=== PATIENT | male | born 1965 | race Caucasian/White ===

== ENCOUNTER 2025-06-04 14:35 | Emergency (ER) | payer MEDICARE, MEDICAID, SELFPAY ==
[2025-06-04 14:36] VITALS: BMI 50.1
--- NOTE | 2025-06-04 14:39 | EKG_ITS ---
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
[2025-06-04 14:40] VITALS: BP 138/99; PULSE 99; RESP 20; TEMP 37.1; O2SAT 95
--- NOTE | 2025-06-04 14:59 | XR_ITS ---
Examination: PA lateral chest 2 views Technique: Upright PA lateral chest 2 views Date and time: June 04, 2025, 1520 hrs. Comparison April 23, 2020 Indications: Chest pain today. Findings: Mild prominence left ventricle. No pneumonia or pulmonary edema. The osseous structures are intact. Impression: No active disease.
--- NOTE | 2025-06-04 14:59 | PD.EDRME ---
Rapid Medical Screening Exam RME Arrival date/time: 06/04/25 14:35 59-year-old male with no known medical history presents to the emergency room with a chief complaint of 8 out of 10 left-sided sternal chest pain that radiates to his left arm x 1 day I have greeted and performed a focused initial assessment of this patient. A comprehensive ED assessment and evaluation of the patient, analysis of all test results, and completion of the medical decision making process will be conducted by additional ED providers. Chief Complaint: Chest Pain Vital signs: Vital Signs Temperature 98.8 F 06/04/25 14:40 Pulse Rate 99 06/04/25 14:40 Respiratory Rate 20 06/04/25 14:40 Blood Pressure 138/99 H 06/04/25 14:40 Pulse Oximetry (%) 95 06/04/25 14:40 Oxygen Delivery Method Room Air 06/04/25 14:40 Vital signs reviewed by provider: Yes
--- NOTE | 2025-06-04 15:08 | PD.EDCHEST ---
ED Chest Pain RME/HPI General Chief Complaint: Chest Pain Stated Complaint: CHEST PAIN, L) ARM PAIN SINCE 6:30AM Time Seen by Provider: 06/04/25 15:01 Arrival date/time: 06/04/25 14:35 Limitations: no limitations RME / HPI RME / HPI narrative: 06/04/25 14:35 59-year-old male with no known medical history presents to the emergency room with a chief complaint of 8 out of 10 left-sided sternal chest pain that radiates to his left arm x 1 day. He states he took 2 adult aspirins today at noon. Has no history of ACS or pulmonary emboli. No lower leg edema. No recent surgeries. No recent traveling. He states he does not take any medications on a daily basis. He has no other acute complaints or concerns. Related Data Home Medications ?Medication ?Instructions ?Recorded ?Confirmed hydroxyzine HCl 50 mg tablet 50 mg PO TID PRN Anxiety 05/14/21 06/20/21 oxycodone 5 mg tablet 5 mg PO Q6H PRN Pain 05/14/21 06/20/21 Held on 06/20/21. Instructions: Resume on 06/21/21. May resume Oxycodone tomorrow, Thursday 8-6 Allergies Allergy/AdvReac Type Severity Reaction Status Date / Time acetaminophen Allergy Mild HEADACHE Verified 06/04/25 14:37 hydrocodone Allergy Mild HEADACHE Verified 06/04/25 14:37 hydrocodone bit Allergy Mild HEADACHE Verified 06/04/25 14:37 tramadol Allergy Mild HEADACHE Verified 06/04/25 14:37 latex Allergy Unknown Rash Verified 06/04/25 14:37 Review of Systems Review of Systems Systems Reviewed: All systems reviewed, normal except as documented ED Exam General Limitations: Present no limitations General appearance: Present alert and in no apparent distress Head Head exam: Present atraumatic Eye Eye exam: Present normal appearance, PERRL and EOMI ENT ENT exam: Present normal exam, normal oropharynx and mucous membranes moist Neck Neck exam: Present normal inspection, full ROM and trachea midline Chest Chest inspection: Present normal inspection and symmetric chest wall rise Respiratory Respiratory exam: Present normal lung sounds bilaterally Cardiovascular Cardiovascular exam: Present regular rate, normal rhythm and normal heart sounds Abdominal Exam Abdominal exam: Present soft and normal bowel sounds Extremities Exam Extremities exam: Present normal inspection and full ROM Back Exam Back exam: Present normal inspection and full ROM Neurological Exam Neurological exam: Present alert and oriented X3 Psychiatric Psychiatric exam: Present normal affect and normal mood Skin Skin exam: Present warm, dry, intact and normal color Course Quality Measures none Orders Category Date Time Status EKG (ED ONLY) *Do not use* NOW Care 06/04/25 14:39 Completed EKG (ED Only) Stat Exams 06/04/25 14:39 Draft XR chest 2V Stat Exams 06/04/25 14:59 Completed B-Type Natriuretic Peptide Stat Lab 06/04/25 15:09 Completed CBC Stat Lab 06/04/25 15:09 Completed Comprehensive Metabolic Panel Stat Lab 06/04/25 15:09 Completed Drug Screen,Urine Stat Lab 06/04/25 16:30 Received Magnesium Stat Lab 06/04/25 15:09 Completed Partial Thromboplastin Time Stat Lab 06/04/25 15:09 Completed Prothrombin Time with INR Stat Lab 06/04/25 15:09 Completed Troponin I Stat Lab 06/04/25 15:09 Completed Urinalysis Stat Lab 06/04/25 16:30 Received Magnesium Oxide [Mag-Ox 400] Med 06/04/25 16:02 Discontinued 400 mg PO X1 ONE Vital Signs Vital signs: Vital Signs Temperature 98.8 F 06/04/25 14:40 Pulse Rate 99 06/04/25 14:40 Respiratory Rate 20 06/04/25 14:40 Blood Pressure 138/99 H 06/04/25 14:40 Pulse Oximetry (%) 95 06/04/25 14:40 Oxygen Delivery Method Room Air 06/04/25 14:40 Chest Pain MDM Narrative MDM Narrative:: 06/04/25 14:35 59-year-old male with no known medical history presents to the emergency room with a chief complaint of 8 out of 10 left-sided sternal chest pain that radiates to his left arm x 1 day. He states he took 2 adult aspirins today at noon. Has no history of ACS or pulmonary emboli. No lower leg edema. No recent surgeries. No recent traveling. He states he does not take any medications on a daily basis. He has no other acute complaints or concerns. On exam, patient is nontoxic-appearing and in no visible signs of distress. He has no lower leg edema. Lung tones are clear bilaterally. No murmurs appreciated. His work appears essentially unremarkable. We discussed his test results. He is advised to use Tylenol and ibuprofen for comfort. He will follow-up in clinic as soon as possible. Return here at anytime for any worsening or emergent changes. Patient data External records reviewed:: None Clinical information provided by:: patient Social determinants that could affect healthcare access:: none Patient has the following chronic illnesses:: n/a How is presenting disease/condition affected by chronic disease/condition?: no chronic disease Evaluation data The following diagnostics were reviewed and interpreted by me:: lab results (CBC, CMP, troponin, are unremarkable. Magnesium was mildly low at 1.3), radiology exam(s) (Clear and expanded lungs without mass or infiltrate.) and EKG tracing(s) (Sinus rhythm with no ST changes or dynamic T waves) Lab and/or radiology exams considered but not ordered:: n/a Interpretation Summary: Unremarkable workup Medications / Prescriptions Medications or Prescriptions considered but not ordered:: n/a Medication administrations:: Medication Administration History Discontinued Medications Magnesium Oxide (Magnesium Oxide 400 Mg Tablet) 400 mg PO X1 ONE Stop: 06/04/25 16:03 Last Admin: 06/04/25 16:19 Dose: 400 mg Documented By: KODY See above Consultations Consultation(s) initiated? (list below): No Diagnosis Chest Pain Differential Diagnosis: atypical chest pain, costochondritis and chest pain Most likely diagnosis given after review of the tests above:: Mild hypomagnesia, noncardiac chest pain Admission Indicated Admission indicated?: not indicated Admission Request Was there a request for admission?: No Disposition Plan Disposition Plan: Discharge Discharge Attestation Discharge Attestation: The patient and all family members were given an opportunity to ask questions and understood the discharge instructions. Discharge instructions specifically effects, indications for sooner follow up or return to the emergency department, and the expected course of current diagnosis. Patient condition: Stable Discharge Plan Plan Patient Disposition: HOME (Self Care) Patient condition on transfer: Stable Prescriptions/Referrals Prescriptions/Med Rec: No Action hydroxyzine HCl 50 mg Tablet 50 mg PO TID PRN (Reason: Anxiety) oxycodone 5 mg Tablet 5 mg PO Q6H PRN (Reason: Pain) Referrals: Maite Molina MD [Primary Care Provider] - In 1 week Problem List Clinical Impression: Chest pain Patient/Caregiver Discharge Instructions Education Materials: ED Chest Pain, Noncardiac Additional Instructions: - Your blood work including cardiac enzymes was unremarkable. Your EKG was unremarkable in addition to your chest x-ray. -Please use Tylenol and ibuprofen as needed for comfort. -Contact your primary clinic tomorrow to schedule close follow-up appointment. -Please return to the emergency room at anytime for any worsening changes to consider further evaluation or workup. Print Language: Ukrainian Stand Alone Forms: [employer] Award Info., Patient Portal Info Letter
[2025-06-04 15:21] LABS: Basophils # (Auto) 0.1 Thou/mm3 (0.0-0.2); Basophils % (Auto) 1 % (0-2.5); Eosinophils # (Auto) 0.1 Thou/mm3 (0.0-0.5); Eosinophils % (Auto) 1 % (0-10); Hematocrit 41.3 % (41.0-53.0); Hemoglobin 14.0 g/dL (13.5-16.0); Immature Granulocytes Auto 0.11 Thou/mm3 (0.00-0.00); Lymphocytes # (Auto) 2.9 Thou/mm3 (1.0-4.8); Lymphocytes % (Auto) 28 % (10-50); Mean Corpuscular HGB Conc 33.9 g/dl (31.0-37.0); Mean Corpuscular Hemoglobin 28.6 pg (25.0-35.0); Mean Corpuscular Volume 85 fL (80-100); Monocytes # (Auto) 0.9 Thou/mm3 (0.0-0.8); Monocytes % (Auto) 9 % (0-12); Neutrophils # (Auto) 6.3 Thou/mm3 (1.8-7.7); Neutrophils % (Auto) 60 % (37-80); Nucleated Red Blood Cell # 0.00 Thou/mm3 (0.00-0.00); Nucleated Red Blood Cell % 0 /100 WBC (0); Platelet Count 413 Thou/mm3 (140-440); RDW Standard Deviation 38.8 fL (35.1-43.9); Red Blood Count 4.89 Miln/mm3 (4.50-5.90); White Blood Count 10.4 Thou/mm3 (3.8-10.6)
[2025-06-04 15:36] LABS: INR 1.0 (0.9-1.3); Partial Thromboplastin Time 24.3 Seconds (22.0-36.0); Prothrombin Time 10.5 Seconds (9.0-12.2)
[2025-06-04 15:48] LABS: B-Type Natriuretic Peptide < 20 pg/mL (0-100)
[2025-06-04 15:49] LABS: Alanine Aminotransferase 41 U/L (10-49); Albumin, Serum 4.7 gm/dL (3.5-5.0); Albumin/Globulin Ratio 1.7 (1.2-2.2); Alkaline Phosphatase 59 U/L (46-116); Anion Gap 9 (7-16); Aspartate Amino Transferase 42 U/L (0-34); BUN/Creatinine Ratio 5 Ratio (12-20); Bilirubin,Total 0.5 mg/dL (0.3-1.2); Blood Urea Nitrogen 6 mg/dL (9-23); Calcium 9.1 mg/dL (8.3-10.6); Calcium (Corrected) 9.1 mg/dL (8.5-10.1); Carbon Dioxide 26.0 mMol/L (20.0-31.0); Chloride 105 mMol/L (98-107); Creatinine (Component) 1.1 mg/dL (0.6-1.3); Estimated Creatinine Clearance 105.8 mL/min (>60); Globulin 2.7 gm/dL (2.3-3.5); Glucose 144 mg/dL (74-106); Magnesium 1.5 mg/dL (1.6-2.6); Osmolality,Calculated 280 (275-295); Potassium 4.3 mMol/L (3.4-5.1); Sodium 140 mMol/L (136-145); Total Protein 7.4 gm/dL (5.7-8.2); Troponin I < 0.020 ng/mL (0.0-0.045); eGFR > 60 See Note
[2025-06-04] MEDS: MAGNESIUM OXIDE 400 MG TABLET PO (16:19)
[2025-06-04 16:56] LABS: Collection Type, Urine Clean Catch; Squamous Epithelial Cell,Urine 0 /hpf (0-5)
[2025-06-04 17:04] LABS: Bilirubin,Urine Negative (Negative); Blood,Urine Negative (Negative); Clarity,Urine Clear (Clear/Hazy); Color,Urine Lt-Yellow (Lt Yel-Yel); Glucose, Urine Negative (Negative); Hyaline Casts,Urine < 1 /hpf (0-1); Ketones,Urine Negative (Negative); Leukocyte Esterase,Urine Negative (Negative); Nitrite,Urine Negative (Negative); PH,Urine 5.5 (5.0-7.0); Protein,Urine Negative (Neg - Trace); RBC,Urine 1 /hpf (0-3); Specific Gravity,Urine 1.012 (1.001-1.035); Urobilinogen,Urine Negative mg/dL (0.0-1.0); WBC,Urine 1 /hpf (0-5)
[2025-06-04 17:14] LABS: Amphetamine/Methamp Scrn,U Negative (Negative); Barbiturate Screen,Urine Negative (Negative); Benzodiazepines Screen,Urine Negative (Negative); Benzoylecgonine Screen, Ur Negative (Negative); Fentanyl Screen,Urine Negative (Negative); Opiate Screen,Urine Negative (Negative); THC Screen,Urine Positive (Negative)
== END 2025-06-04 17:04 | disposition home or self-care (01) ==
PROVIDERS: Nurse Practitioner Family; Emergency Provider Physician Assistant Medical; PCP Family Medicine
DX: R07.2 Precordial pain (principal); R94.31 Abnormal electrocardiogram [ECG] [EKG]
CPT/HCPCS: 36415; 71046; 80053; 80307; 81001; 83735; 83880; 84484; 85025; 85610; 85730; 93005; 99283; A9270

== ENCOUNTER 2025-06-12 15:33 | Emergency (ER) | payer MEDICARE, MEDICAID, SELFPAY ==
[2025-06-12 15:34] VITALS: BMI 50.1
--- NOTE | 2025-06-12 15:36 | EKG_ITS ---
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
[2025-06-12 15:53] VITALS: BP 138/100; PULSE 95; RESP 18; TEMP 36.7; O2SAT 95
--- NOTE | 2025-06-12 16:00 | XR_ITS ---
Examination: PA lateral chest 2 views TECHNIQUE: Upright PA lateral chest 2 views Date and time: June 04, 2025 1608 hours Comparison June 04, 2025 INDICATIONS: Chest pain one week. FINDINGS: Normal heart size No pneumonia or pulmonary edema Stable small granuloma right upper lobe compared with 2013 chest x-ray IMPRESSION: No pneumonia or pulmonary edema
--- NOTE | 2025-06-12 16:01 | PD.EDRME ---
Rapid Medical Screening Exam E Arrival date/time: 06/12/25 15:33 59-year-old male presents to the emergency room with a chief complaint of palpitations, blurry vision, chest tightness x 1 week that has progressively gotten worse today. I have greeted and performed a focused initial assessment of this patient. A comprehensive ED assessment and evaluation of the patient, analysis of all test results, and completion of the medical decision making process will be conducted by additional ED providers. Chief Complaint: Headache Time Seen by Provider: 06/12/25 15:49 Vital signs: Vital Signs Temperature 98.1 F 06/12/25 15:53 Pulse Rate 95 06/12/25 15:53 Respiratory Rate 18 06/12/25 15:53 Blood Pressure 138/100 H 06/12/25 15:53 Pulse Oximetry (%) 95 06/12/25 15:53 Oxygen Delivery Method Room Air 06/12/25 15:53 Vital signs reviewed by provider: Yes
[2025-06-12 16:28] LABS: Basophils # (Auto) 0.1 Thou/mm3 (0.0-0.2); Basophils % (Auto) 1 % (0-2.5); Eosinophils # (Auto) 0.2 Thou/mm3 (0.0-0.5); Eosinophils % (Auto) 2 % (0-10); Hematocrit 42.0 % (41.0-53.0); Hemoglobin 14.0 g/dL (13.5-16.0); Immature Granulocytes Auto 0.05 Thou/mm3 (0.00-0.00); Lymphocytes # (Auto) 2.5 Thou/mm3 (1.0-4.8); Lymphocytes % (Auto) 27 % (10-50); Mean Corpuscular HGB Conc 33.3 g/dl (31.0-37.0); Mean Corpuscular Hemoglobin 28.8 pg (25.0-35.0); Mean Corpuscular Volume 86 fL (80-100); Monocytes # (Auto) 0.7 Thou/mm3 (0.0-0.8); Monocytes % (Auto) 8 % (0-12); Neutrophils # (Auto) 5.5 Thou/mm3 (1.8-7.7); Neutrophils % (Auto) 62 % (37-80); Nucleated Red Blood Cell # 0.00 Thou/mm3 (0.00-0.00); Nucleated Red Blood Cell % 0 /100 WBC (0); Platelet Count 363 Thou/mm3 (140-440); RDW Standard Deviation 40.3 fL (35.1-43.9); Red Blood Count 4.86 Miln/mm3 (4.50-5.90); White Blood Count 9.0 Thou/mm3 (3.8-10.6)
[2025-06-12 16:39] LABS: B-Type Natriuretic Peptide < 20 pg/mL (0-100)
[2025-06-12 16:42] LABS: Alanine Aminotransferase 52 U/L (10-49); Albumin, Serum 4.7 gm/dL (3.5-5.0); Albumin/Globulin Ratio 1.9 (1.2-2.2); Alkaline Phosphatase 55 U/L (46-116); Anion Gap 9 (7-16); Aspartate Amino Transferase 51 U/L (0-34); BUN/Creatinine Ratio 11 Ratio (12-20); Bilirubin,Total 0.4 mg/dL (0.3-1.2); Blood Urea Nitrogen 11 mg/dL (9-23); Calcium 9.3 mg/dL (8.3-10.6); Calcium (Corrected) 9.3 mg/dL (8.5-10.1); Carbon Dioxide 24.8 mMol/L (20.0-31.0); Chloride 105 mMol/L (98-107); Creatinine (Component) 1.0 mg/dL (0.6-1.3); Estimated Creatinine Clearance 116.3 mL/min (>60); Globulin 2.5 gm/dL (2.3-3.5); Glucose 169 mg/dL (74-106); Magnesium 1.6 mg/dL (1.6-2.6); Osmolality,Calculated 280 (275-295); Potassium 4.1 mMol/L (3.4-5.1); Sodium 139 mMol/L (136-145); Total Protein 7.2 gm/dL (5.7-8.2); Troponin I < 0.020 ng/mL (0.0-0.045); eGFR > 60 See Note
[2025-06-12 16:44] LABS: INR 0.9 (0.9-1.3); Partial Thromboplastin Time 24.5 Seconds (22.0-36.0); Prothrombin Time 10.4 Seconds (9.0-12.2)
[2025-06-12 17:15] LABS: Collection Type, Urine Clean Catch; Squamous Epithelial Cell,Urine 0 /hpf (0-5)
[2025-06-12 17:32] VITALS: BP 149/102; PULSE 85; RESP 19; TEMP 37.3; O2SAT 96
[2025-06-12 17:34] LABS: Bilirubin,Urine Negative (Negative); Blood,Urine Negative (Negative); Clarity,Urine Clear (Clear/Hazy); Color,Urine Lt-Yellow (Lt Yel-Yel); Glucose, Urine Negative (Negative); Ketones,Urine Negative (Negative); Leukocyte Esterase,Urine Negative (Negative); Nitrite,Urine Negative (Negative); PH,Urine 6.0 (5.0-7.0); Protein,Urine Negative (Neg - Trace); RBC,Urine 1 /hpf (0-3); Specific Gravity,Urine 1.015 (1.001-1.035); Urobilinogen,Urine Negative mg/dL (0.0-1.0); WBC,Urine 1 /hpf (0-5)
[2025-06-12 17:47] LABS: Amphetamine/Methamp Scrn,U Negative (Negative); Barbiturate Screen,Urine Negative (Negative); Benzodiazepines Screen,Urine Negative (Negative); Benzoylecgonine Screen, Ur Negative (Negative); Fentanyl Screen,Urine Negative (Negative); Opiate Screen,Urine Negative (Negative); THC Screen,Urine Positive (Negative)
--- NOTE | 2025-06-12 18:15 | XR_ITS ---
Examination: CTA chest with intravenous contrast 2-D reconstructions 3-D reconstructions, vascular Date and time of exam: June 12, 2025, 1934 hours INDICATIONS: Chest pain with dyspnea one week CTDI: vol (mGy) 28.5 DLP: (mGycm) 705 Technique: Multiple axial sections of the thorax have been obtained. 3 mm slice thickness, from below the hemidiaphragms to above the apices of the lungs. Mediastinal and lung density settings have been obtained. 2-D sagittal and coronal reconstructions. 3-D angiographic renderings, 3-D volume renderings, 3D post processing, vascular maximum intensity projections obtained. Contrast administered is 100 cc Isovue 370. Intravenous Low dose protocols were performed. One or more of the following dose reduction techniques were used; automated exposure control, adjustment of the mA and/or KV according to patient size, use of iterative reconstruction technique. Findings: No thoracic aortic aneurysmal dilatation or dissection No pulmonary artery emboli No paratracheal tracheobronchial or bronchopulmonary adenopathy Calcified small granulomas in the right lung No pneumonia or pulmonary edema or pleural disease No visualized liver or splenic lesion No gallstones IMPRESSION: No thoracic aortic aneurysm dilatation or dissection Negative for pulmonary artery emboli No CHF or pneumonia identified
--- NOTE | 2025-06-12 18:17 | PD.EDCHEST ---
ED Chest Pain RME/HPI General Chief Complaint: Headache Stated Complaint: HEADACHE, FAST HR, BLURRY VISION FOR A WEEK Time Seen by Provider: 06/12/25 15:49 Source: patient Arrival date/time: 06/12/25 15:33 Limitations: no limitations RME / HPI RME / HPI narrative: 06/12/25 15:33 59-year-old male presents to the emergency room with a chief complaint of palpitations, blurry vision, chest tightness x 1 week that has progressively gotten worse today he states his symptoms are worse with exertion. He denies any syncopal episodes or falls. Has no nausea or vomiting. No lower leg edema. No fevers or chills. No recent travel or surgeries. He has no primary doctor. He was seen here last week with similar symptoms and had a negative cardiac workup. He had a angiogram in 2020 that was unremarkable. Related Data Home Medications ?Medication ?Instructions ?Recorded ?Confirmed hydroxyzine HCl 50 mg tablet 50 mg PO TID PRN Anxiety 05/14/21 06/20/21 oxycodone 5 mg tablet 5 mg PO Q6H PRN Pain 05/14/21 06/20/21 Held on 06/20/21. Instructions: Resume on 06/21/21. May resume Oxycodone tomorrow, Thursday 8-6 Allergies Allergy/AdvReac Type Severity Reaction Status Date / Time acetaminophen Allergy Mild HEADACHE Verified 06/12/25 15:34 hydrocodone Allergy Mild HEADACHE Verified 06/12/25 15:34 hydrocodone bit Allergy Mild HEADACHE Verified 06/12/25 15:34 tramadol Allergy Mild HEADACHE Verified 06/12/25 15:34 latex Allergy Unknown Rash Verified 06/12/25 15:34 Review of Systems Review of Systems Systems Reviewed: All systems reviewed, normal except as documented ED Exam General Limitations: Present no limitations General appearance: Present alert and in no apparent distress Head Head exam: Present atraumatic Eye Eye exam: Present normal appearance, PERRL and EOMI ENT ENT exam: Present normal exam, normal oropharynx and mucous membranes moist Neck Neck exam: Present normal inspection, full ROM and trachea midline Chest Chest inspection: Present normal inspection and symmetric chest wall rise Respiratory Respiratory exam: Present normal lung sounds bilaterally Cardiovascular Cardiovascular exam: Present regular rate, normal rhythm and normal heart sounds Abdominal Exam Abdominal exam: Present soft and normal bowel sounds Extremities Exam Extremities exam: Present normal inspection and full ROM Back Exam Back exam: Present normal inspection and full ROM Neurological Exam Neurological exam: Present alert and oriented X3 Psychiatric Psychiatric exam: Present normal affect and normal mood Skin Skin exam: Present warm, dry, intact and normal color Course Quality Measures none Orders Category Date Time Status CT Screening NOW Care 06/12/25 18:15 Active EKG (ED ONLY) *Do not use* NOW Care 06/12/25 15:[address] angio chest Stat Exams 06/12/25 18:15 Completed EKG (ED Only) Stat Exams 06/12/25 15:36 Draft XR chest 2V Stat Exams 06/12/25 16:00 Completed B-Type Natriuretic Peptide Stat Lab 06/12/25 16:07 Completed CBC Stat Lab 06/12/25 16:07 Completed Comprehensive Metabolic Panel Stat Lab 06/12/25 16:07 Completed Drug Screen,Urine Stat Lab 06/12/25 16:58 Completed Magnesium Stat Lab 06/12/25 16:07 Completed Partial Thromboplastin Time Stat Lab 06/12/25 16:07 Completed Prothrombin Time with INR Stat Lab 06/12/25 16:07 Completed Troponin I Stat Lab 06/12/25 16:07 Completed Urinalysis Stat Lab 06/12/25 16:58 Completed Diazepam Inj [Valium Inj] Med 06/12/25 18:15 Discontinued 5 mg IVP X1 ONE Vital Signs Vital signs: Vital Signs Temperature 98.1 F 06/12/25 15:53 Pulse Rate 95 06/12/25 15:53 Respiratory Rate 18 06/12/25 15:53 Blood Pressure 138/100 H 06/12/25 15:53 Pulse Oximetry (%) 95 06/12/25 15:53 Oxygen Delivery Method Room Air 06/12/25 15:53 Chest Pain MDM Narrative MDM Narrative:: 06/12/25 15:33 59-year-old male presents to the emergency room with a chief complaint of palpitations, blurry vision, chest tightness x 1 week that has progressively gotten worse today he states his symptoms are worse with exertion. He denies any syncopal episodes or falls. Has no nausea or vomiting. No lower leg edema. No fevers or chills. No recent travel or surgeries. He has no primary doctor. He was seen here last week with similar symptoms and had a negative cardiac workup. He had a angiogram in 2020 that was unremarkable. On exam, patient is nontoxic-appearing in no visible signs distress. Reviewed the workup they received here, his CBC, CMP, and troponin are unremarkable. Chest x-ray is unremarkable. We discussed obtaining a PE study which might be low yield but may explain his symptoms. Patient was agreeable to this but did request a dose of Ativan prior to the CT due to his history of anxiety. CT of the chest was unremarkable for any acute process, no pulmonary emboli was identified. Details were discussed with the patient. I do believe he would discharge again from the ER. She is asked to follow-up with primary care. Return as needed for worsening emergent changes. Patient data External records reviewed:: None Clinical information provided by:: patient Social determinants that could affect healthcare access:: none Patient has the following chronic illnesses:: Anxiety How is presenting disease/condition affected by chronic disease/condition?: exacerbated by Evaluation data The following diagnostics were reviewed and interpreted by me:: lab results (CBC, CMP are unremarkable. Troponin is negative.), radiology exam(s) (CT of the chest is unremarkable for any pulmonary emboli. Chest x-ray reveals clear lungs Linessa over trait) and EKG tracing(s) (Normal sinus rhythm at [address] changes or dynamic T waves.) Lab and/or radiology exams considered but not ordered:: n/a Interpretation Summary: Unremarkable workup Medications / Prescriptions Medications or Prescriptions considered but not ordered:: n/a Medication administrations:: Medication Administration History Discontinued Medications Diazepam (Diazepam Inj 5 Mg/Ml Vial 2 Ml) 5 mg IVP X1 ONE Stop: 06/12/25 18:16 Last Admin: 06/12/25 19:23 Dose: 5 mg Documented By: SONALI Comments: medication was not scanning. verified correct medication see above Consultations Consultation(s) initiated? (list below): No Diagnosis Chest Pain Differential Diagnosis: costochondritis, chest pain and other (Pulmonary emboli) Most likely diagnosis given after review of the tests above:: Noncardiac chest pain Admission Indicated Admission indicated?: not indicated Admission Request Was there a request for admission?: No Disposition Plan Disposition Plan: Discharge Discharge Attestation Discharge Attestation: The patient and all family members were given an opportunity to ask questions and understood the discharge instructions. Discharge instructions specifically effects, indications for sooner follow up or return to the emergency department, and the expected course of current diagnosis. Patient condition: Stable Discharge Plan Plan Patient Disposition: HOME (Self Care) Patient condition on transfer: Stable Prescriptions/Referrals Prescriptions/Med Rec: No Action hydroxyzine HCl 50 mg Tablet 50 mg PO TID PRN (Reason: Anxiety) oxycodone 5 mg Tablet 5 mg PO Q6H PRN (Reason: Pain) Referrals: No Primary/Family,Physician [Primary Care Provider] - In 1 week Problem List Clinical Impression: Chest pain Patient/Caregiver Discharge Instructions Education Materials: ED Chest Pain, Noncardiac Additional Instructions: - Your repeat workup today was unremarkable. There is no evidence of any clot in your lung. - Please follow-up with a primary care provider. - You may return as needed for any worsening or emergent changes. Print Language: Swedish Stand Alone Forms: [employer] Award Info., Patient Portal Info Letter
[2025-06-12] MEDS: DIAZEPAM INJ 5 MG/ML VIAL 2 ML IVP (19:23)
[2025-06-12 19:44] VITALS: BP 163/101; PULSE 69; RESP 12; TEMP 36.9; O2SAT 96
[2025-06-12 20:30] VITALS: BP 163/101; PULSE 72; RESP 13; O2SAT 95
== END 2025-06-12 20:31 | disposition home or self-care (01) ==
PROVIDERS: Nurse Practitioner Family; Emergency Provider Emergency Medicine
DX: R07.89 Other chest pain (principal); R06.00 Dyspnea, unspecified; R94.31 Abnormal electrocardiogram [ECG] [EKG]
CPT/HCPCS: 36415; 71046; 71275; 80053; 80307; 81001; 83735; 83880; 84484; 85025; 85610; 85730; 93005; 96374; 99283; A4649; J3360; Q9967

== ENCOUNTER → 2025-06-29 | Outpatient (CLI) | payer MEDICARE, MEDICAID, SELFPAY ==
--- NOTE | 2025-06-29 14:46 | XR_ITS ---
Examination: Abdomen sonogram, complete Date and time of exam: June 29, 2025 1505 hours INDICATIONS: Left abdominal pain 2 months. Technique: Multiple real-time grayscale transabdominal sonographic images of the abdomen have been obtained. Findings: Normal gallbladder Normal common bile duct 0.2 cm Pancreatic head 2.8 cm Aorta not enlarged Liver 22.5 cm fatty infiltration Normal hepatopedal portal venous oh Patent IVC Right kidney 9.5 cm cortex 1.1 cm Left kidney 11.3 cm cortex 1.6 cm Spleen 10.0 cm IMPRESSION: Normal gallbladder Significant hepatomegaly fatty infiltration no focal liver lesions
== END | disposition home or self-care (01) ==
LOC: CDIM 14:34
PROVIDERS: PCP Student in an Organized Health Care Education/Training Program; Referring Provider Student in an Organized Health Care Education/Training Program; Visit Provider Student in an Organized Health Care Education/Training Program
DX: K76.0 Fatty (change of) liver, not elsewhere classified (principal)
CPT/HCPCS: 76700

== ENCOUNTER 2025-10-19 18:56 | Emergency (ER) | payer MEDICARE, MEDICAID, SELFPAY ==
[2025-10-19 18:57] VITALS: BMI 45.1
[2025-10-19 19:04] VITALS: BP 166/91; PULSE 100; RESP 20; TEMP 36.9; O2SAT 97
--- NOTE | 2025-10-19 19:07 | XR_ITS ---
Examination: Wrist, right 3 views Technique: Wrist AP, oblique, lateral 3 views Date and time of exam: October 19, 2025, 7011 hours INDICATIONS: Patient fell today with injury to the wrist, wrist pain. FINDINGS: Mild deformity of the lunate No acute fracture Moderate osteoarthritis first carpometacarpal joint No dorsal dislocation of the distal ulna IMPRESSION: No acute fracture
--- NOTE | 2025-10-19 19:08 | PD.EDHAND ---
Upper Extremity Injury RME/HPI General Chief Complaint: Hand/Wrist Problems Stated Complaint: wrist pain Time Seen by Provider: 10/19/25 19:07 Arrival date/time: 10/19/25 18:56 59M with no significant PMH presents to ED with R wrist pain after trip and fall today. Patient has broken that wrist twice before. Limitations: no limitations Related Data Home Medications ?Medication ?Instructions ?Recorded ?Confirmed hydroxyzine HCl 50 mg tablet 50 mg PO TID PRN Anxiety 05/14/21 06/20/21 oxycodone 5 mg tablet 5 mg PO Q6H PRN Pain 05/14/21 06/20/21 Held on 06/20/21. Instructions: Resume on 06/21/21. May resume Oxycodone tomorrow, Thursday 8-6 Allergies Allergy/AdvReac Type Severity Reaction Status Date / Time acetaminophen Allergy Mild HEADACHE Verified 10/19/25 18:58 hydrocodone Allergy Mild HEADACHE Verified 10/19/25 18:58 hydrocodone bit Allergy Mild HEADACHE Verified 10/19/25 18:58 tramadol Allergy Mild HEADACHE Verified 10/19/25 18:58 latex Allergy Unknown Rash Verified 10/19/25 18:58 Review of Systems Musculoskeletal Musculoskeletal: Reports as per HPI and Reports arthralgias Past Medical History Past Medical History NEUROLOGIC: Negative Neurological Disorders or Seizures CARDIAC: Positive Cardiac Disorders; Negative Aneurysm or Congestive Heart Failure RESPIRATORY: Positive Sleep Apnea (no cpap machine); Negative Chronic Obstructive Pulmonary Disease (COPD) or Asthma GASTROINTESTINAL: Positive Gastrointestinal Disorders and Hiatal Hernia (12 years ago) GENITOURINARY: Negative Genitourinary Disorders or Renal Disease MUSCULOSKELETAL: Negative Musculoskeletal Disorders ENDOCRINE: Negative Diabetes Mellitus Type 1 or Diabetes Mellitus Type 2 HEMATOLOGIC: Negative Blood Disorders or Sickle Cell Disease OTHER HISTORY: Negative Autoimmune Disease, Shingles, Blood Transfusions, Anesthesia Reactions or Cancer Family History FAMILY HISTORY: Positive Family Cardiac Disorders (dad); Negative Family Respiratory Disorders Surgical History SURGICAL: Positive Cardiac Surgery, Angiogram (10 yrs and 2 weeks ago), Abdominal Surgery, Gastric Bypass Surgery (20 years ago), Joint Replacement (right kne) and Arthroscopy (multiple bilat) Social History SMOKING STATUS: Never smoker ED Exam General Limitations: Present no limitations General appearance: Present alert and in no apparent distress Head Head exam: Present atraumatic Neck Neck exam: Present normal inspection, full ROM and trachea midline Chest Chest inspection: Present normal inspection and symmetric chest wall rise Extremities Exam Extremities exam: Present full ROM Expanded Upper Extremity Exam Forearm/Wrist exam: Present full ROM and tenderness (mild R) Neurological Exam Neurological exam: Present alert and oriented X3 Psychiatric Psychiatric exam: Present normal affect and normal mood Skin Skin exam: Present warm, dry, intact and normal color Course Quality Measures none Orders Category Date Time Status dahlia wrap [Splint / Immobilizer] STAT Care 10/19/25 19:42 Completed XR wrist comp RT min 3V Stat Exams 10/19/25 19:07 Completed Vital Signs Vital signs: Vital Signs Temperature 98.5 F 10/19/25 19:04 Pulse Rate 100 10/19/25 19:04 Respiratory Rate 20 10/19/25 19:04 Blood Pressure 166/91 H 10/19/25 19:04 Pulse Oximetry (%) 97 10/19/25 19:04 Oxygen Delivery Method Room Air 10/19/25 19:04 O2 at 97% on RA and WNLs Extremity Injury MDM Narrative MDM Narrative:: 59M with no significant PMH presents to ED with R wrist pain after trip and fall today. Patient has broken that wrist twice before. Physical exam reveals mild R wrist tenderness. ROM intact. Patient is afebrile, calm, and alert. XR no fx. Given DAHLIA and vocational counselor. Patient data External records reviewed:: [facility] previous records Clinical information provided by:: patient Social determinants that could affect healthcare access:: none Patient has the following chronic illnesses:: none How is presenting disease/condition affected by chronic disease/condition?: no chronic disease Evaluation data The following diagnostics were reviewed and interpreted by me:: radiology exam(s) Lab and/or radiology exams considered but not ordered:: ordered Interpretation Summary: above Medications / Prescriptions Medications or Prescriptions considered but not ordered:: not ordered Medication administrations:: n/a Consultations Consultation(s) initiated? (list below): No Diagnosis Upper Extremity Injury Differential Diagnosis: sprain and strain of wrist, fracture of wrist, finger sprain, dislocation of finger, Colles' fracture and fracture of hand Most likely diagnosis given after review of the tests above:: wrist sprain and strain Admission Indicated Admission indicated?: not indicated Admission Request Was there a request for admission?: No Disposition Plan Disposition Plan: Discharge Discharge Attestation Discharge Attestation: The patient and all family members were given an opportunity to ask questions and understood the discharge instructions. Discharge instructions specifically effects, indications for sooner follow up or return to the emergency department, and the expected course of current diagnosis. Patient condition: Stable Discharge Plan Plan Patient Disposition: HOME (Self Care) Discharge Disposition comment: Stable Patient condition on transfer: Stable Prescriptions/Referrals Prescriptions/Med Rec: No Action hydroxyzine HCl 50 mg Tablet 50 mg PO TID PRN (Reason: Anxiety) oxycodone 5 mg Tablet 5 mg PO Q6H PRN (Reason: Pain) Problem List Clinical Impression: Sprain and strain of wrist Patient/Caregiver Discharge Instructions Education Materials: ED Wrist Sprain Additional Instructions: Please follow-up with PCP within 24-48 hours and return immediately if symptoms worsen. If problem persists, recommend outpatient PT and/or MRI follow-up. In the meantime, rest, use ice/heat, and/or compression. Print Language: Mohawk Stand Alone Forms: Patient Portal Info Letter MARY/SANDEE Supervising Physician MARY/SANDEE Supervising Physician: Dr. William
[2025-10-19 19:58] VITALS: BP 132/80; PULSE 77; RESP 12; TEMP 36.6; O2SAT 99
== END 2025-10-19 20:03 | disposition home or self-care (01) ==
LOC: SERX 20:03
PROVIDERS: Emergency Provider Emergency Medicine; PCP Student in an Organized Health Care Education/Training Program
DX: S63.501A Unspecified sprain of right wrist, initial encounter (principal); S66.911A Strain of unspecified muscle, fascia and tendon at wrist and hand level, right hand, initial encounter; W01.0XXA Fall on same level from slipping, tripping and stumbling without subsequent striking against object, initial encounter
CPT/HCPCS: 73110; 99282